=== PATIENT | female | born 1950 | race Caucasian/White ===

== ENCOUNTER 2019-04-03 13:10 | Emergency (ER) | payer MEDICARE ==
[2019-04-03] MEDS ORDERED: Ibuprofen 600 MG Tab PO ONE (13:27)
[2019-04-03 13:32] VITALS: PULSE 70
[2019-04-03] MEDS ORDERED: Ibuprofen 600 MG Tab ONE (13:36)
[2019-04-03 13:52] VITALS: BP 168/95
--- NOTE | 2019-04-03 17:16 | CR ---
CLINICAL DATA: Fall. RIGHT FOREARM, 03 APRIL 2019: No priors. There is mild diffuse osteopenia. No acute fracture or dislocation. No focal lytic or blastic bone lesions. Job: [id number] MTD[facility]
--- NOTE | 2019-04-03 17:21 | CR ---
CLINICAL DATA: Fall. RIGHT SHOULDER, 03 APRIL 2019: There is diffuse osteopenia. There are mild osteoarthritic changes of the AC and glenohumeral joints. There is mild spurring of the greater tuberosity of the proximal humerus. No acute fracture or dislocation. No lytic or blastic bone lesions. Job: [id number] [facility]
--- NOTE | 2019-04-03 17:54 | EDM.PDOC ---
ED HPI GENERAL MEDICAL PROBLEM - General Chief Complaint: General Stated Complaint: FALL, ARM INJURY Source of Information: Reports: Patient - History of Present Illness INITIAL COMMENTS - FREE TEXT/NARRATIVE: Patient is a 68 year old white female who slipped on the ice 1 hour prior to arrival and arrives c/o pain in right shoulder and right forearm and right lateral chest wall/ribs. No difficulty breathing. Patient denies head trauma , neck pain or LOC. Concerned about possible fracture. Duration: Hour(s): (1) Location: Reports: Upper Extremity, Right Quality: Reports: Sharp (Pain worse with deep breath in right ribs and pain worse with movement in right forearm and shoulder. 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: Musculoskeletal History: Reports: Other (See Below) Other Musculoskeletal History: Rt leg pain , Left Wrist pain, thumb ring finger and long finger RT hand Pain Psychiatric History: Reports: Depression - Past Surgical History GI Surgical History: Reports: Bariatric Procedure, Colonoscopy, Hernia Repair/ Other ED EXAM, GENERAL - Physical Exam Exam Limited By: No Limitations General Appearance: Alert, No Apparent Distress Head: Atraumatic Neck: Normal Inspection, Non-Tender, Full Range of Motion Respiratory/Chest: No Respiratory Distress, Lungs Clear, Normal Breath Sounds, Other (Right lateral chest wall mildy tender over right lateral chest wall over ribs 5 and 6) Cardiovascular: Regular Rate, Rhythm, No Gallop, No Murmur GI/Abdominal: Soft, Non-Tender, No Distention Back Exam: Normal Inspection, Other (Non tnender T spine and C spine) Course - Vital Signs Last Recorded V/S: Last Vital Signs Temp 98.2 F 04/03/19 13:49 Pulse 70 04/03/19 13:49 Resp 16 04/03/19 13:49 BP 168/95 H 04/03/19 13:49 Pulse Ox 99 04/03/19 13:49 - Orders/Labs/Meds Meds: Medications Discontinued Medications Generic Name Dose Route Start Last Admin Trade Name Freq PRN Reason Stop Dose Admin Ibuprofen 600 mg 04/03/19 13:27 04/03/19 13:29 Motrin PO 04/03/19 13:28 600 mg ONETIME ONE Administration Ibuprofen Confirm 04/03/19 13:36 Motrin Administered 04/03/19 13:37 Dose 600 mg .ROUTE .STK-MED ONE Departure - Departure Condition: Good Clinical Impression: Contusion of right chest wall Qualifiers: Encounter type: initial encounter Qualified Code(s): S20.211A - Contusion of right front wall of thorax, initial encounter - Discharge Information *PRESCRIPTION DRUG MONITORING PROGRAM REVIEWED*: Not Applicable Instructions: Contusion, [id number], Rib Contusion Referrals: PCP,None [Primary Care Provider] - Forms: ED Department Discharge, ED Summary Discharge Care Plan Goals: May use ice on extremity, may take motrin or tylenol for pain. Return to hospital or clinic if symptoms worsen. Follow up with usual MD in 7-10 days if pain doesn't clear. Will call patient if radiologist reads a fracture on x ray X rays negative by my reading. Sepsis Event Note - Evaluation Sepsis Screening Result: No Definite Risk - Focused Exam Vital Signs: Vital Signs Temp Pulse Resp BP Pulse Ox 04/03/19 13:49 98.2 F 70 16 168/95 H 99 04/03/19 13:31 98.9 F 70 16 168/92 H 100 Date Exam was Performed: 04/03/19 Time Exam was Performed: 18:01
--- NOTE | 2019-04-03 18:20 | EDM.PDOC ---
ED HPI GENERAL MEDICAL PROBLEM - General Chief Complaint: General Stated Complaint: FALL, ARM INJURY, chest wall, forearm and shoulder pain Source of Information: Reports: Patient History Limitations: Reports: No Limitations - History of Present Illness INITIAL COMMENTS - FREE TEXT/NARRATIVE: Patient is a 68 year old white female who slipped on the ice 1 hour prior to arrival and arrives c/o pain in right shoulder and right forearm and right lateral chest wall/ribs. No difficulty breathing. Patient denies head trauma , neck pain or LOC. Concerned about possible fracture. Duration: Hour(s): (1) Location: Reports: Upper Extremity, Right Quality: Reports: Sharp (Pain worse with deep breath in right ribs and pain worse with movement in right forearm and shoulder. 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 No difficulty breathing. Patient denies head trauma , neck pain or LOC. Concerned about possible fracture. Exam Limited By: No Limitations General Appearance: Alert, No Apparent Distress Head: Atraumatic Neck: Normal Inspection, Non-Tender, Full Range of Motion Respiratory/Chest: No Respiratory Distress, Lungs Clear, Normal Breath Sounds, Other (Right lateral chest wall mildy tender over right lateral chest wall over ribs 5 and 6) Cardiovascular: Regular Rate, Rhythm, No Gallop, No Murmur GI/Abdominal: Soft, Non-Tender, No Distention Back Exam: Normal Inspection, Other (Non tnender T spine and C spine) Extremities: Normal Inspection, Normal Range of Motion, Other (Tener over distal forearm and proximal humerus at shoulder with normal range of motion of wrist elbow and shoulder without deformity) Neurological: Alert, Oriented, Normal Cognition, Normal Gait Course - Vital Signs Last Recorded V/S: Last Vital Signs Temp 98.2 F 04/03/19 13:49 Pulse 70 04/03/19 13:49 Resp 16 04/03/19 13:49 BP 168/95 H 04/03/19 13:49 Pulse Ox 99 04/03/19 13:49 - Orders/Labs/Meds Meds: Medications Discontinued Medications Generic Name Dose Route Start Last Admin Trade Name Pamela PRN Reason Stop Dose Admin Ibuprofen 600 mg 04/03/19 13:27 04/03/19 13:29 Motrin PO 04/03/19 13:28 600 mg ONETIME ONE Administration Ibuprofen Confirm 04/03/19 13:36 Motrin Administered 04/03/19 13:37 Dose 600 mg .ROUTE .STK-MED ONE - Radiology Interpretation Free Text/Narrative:: X rays of right forearm and shoulder negative for fx or subluxation Departure - Departure Disposition: Home, Self-Care 01 Condition: Good Clinical Impression: Contusion of forearm, right Qualifiers: Encounter type: initial encounter Qualified Code(s): S50.11XA - Contusion of right forearm, initial encounter Contusion of right chest wall Qualifiers: Encounter type: initial encounter Qualified Code(s): S20.211A - Contusion of right front wall of thorax, initial encounter - Discharge Information *PRESCRIPTION DRUG MONITORING PROGRAM REVIEWED*: Not Applicable *COPY OF PRESCRIPTION DRUG MONITORING REPORT IN PATIENT BRENDA: Not Applicable Instructions: Contusion, [id number], Rib Contusion Referrals: PCP,None [Primary Care Provider] - Forms: ED Department Discharge, ED Summary Discharge Care Plan Goals: May use ice on extremity, may take motrin or tylenol for pain. Return to hospital or clinic if symptoms worsen. Follow up with usual MD in 7-10 days if pain doesn't clear. Will call patient if radiologist reads a fracture on x ray X rays negative by my reading. Sepsis Event Note - Evaluation Sepsis Screening Result: No Definite Risk - Focused Exam Date Exam was Performed: 04/04/19 Time Exam was Performed: 12:38 - Problem List & Annotations (1) Contusion of right chest wall SNOMED Code(s): 46939402606112497 Code(s): S20.211A - CONTUSION OF RIGHT FRONT WALL OF THORAX, INITIAL ENCOUNTER Status: Acute Qualifiers: Encounter type: initial encounter Qualified Code(s): S20.211A - Contusion of right front wall of thorax, initial encounter - Assessment/Plan Assessment:: Contusion to right forearm,l chest wall and shoulder Plan: Return for worsening pain or SOB or otjher worsening Disharge to home\Motrin prn for pain 600 mg po tid prn
== END 2019-04-03 14:13 | disposition home or self-care (01) ==
LOC: LB.ED 13:10
DX: S20.211A Contusion of right front wall of thorax, initial encounter (principal); S50.11XA Contusion of right forearm, initial encounter; W00.0XXA Fall on same level due to ice and snow, initial encounter
CPT/HCPCS: 73030-RT; 73090-RT; 99283; 99283-25; A9270-GY

== ENCOUNTER 2020-01-01 10:56 | Day surgery (SDC) | payer MEDICARE ==
[~2020-01-01 10:56] MED LIST: Metoclopramide 10 MG/2 ML SDV IV PRN; Sodium Chloride 0.9% 1,000 ML IV SCH
[2020-01-01] MEDS ORDERED: Propofol 1,000 MG/100 ML SDV ONE (15:00)
[2020-01-01 16:21] VITALS: BP 140/75; PULSE 69
--- NOTE | 2020-01-01 19:10 | OR ---
DATE OF OPERATION: 01/01/2020 SURGEON: Jun Finch MD PREOPERATIVE DIAGNOSIS: Surveillance colonoscopy. POSTOPERATIVE DIAGNOSIS: Surveillance colonoscopy. PROCEDURE: Colonoscopy with polypectomy x2. ANESTHESIA: MAC. ESTIMATED BLOOD LOSS: Minimal. COMPLICATIONS: None. INDICATION FOR THE PROCEDURE: The patient is a 69-year-old female here today for a surveillance colonoscopy. Last colonoscopy was 10 years ago. She did have polyps on her previous exam. Otherwise, denies any change in bowel habits since that time. DESCRIPTION OF PROCEDURE: Informed consent was obtained from the patient. The patient was taken to the operating room and placed on table in left lateral decubitus position. Monitored anesthesia care was administered. Digital rectal exam performed and was normal. Colonoscope then advanced through the anus directed toward the cecum. Cecum was reached and identified by appendiceal orifice and ileocecal valve. The patient did have a quite torturous colon and was significantly hampered by looping. Using tensioner and abdominal pressure, we were able to reach the cecum. We slowly withdrew the scope. She did have a small semipedunculated polyp in the sigmoid colon. This was removed by hot snare polypectomy. Also had another small semi-pedunculated polyp in the rectum. This was also removed by hot snare polypectomy. Remainder of the colon was unremarkable. FINDINGS: Colon polyps x2, appearing benign. RECOMMENDATIONS: We will follow up on biopsy results. Otherwise, we would recommend repeat surveillance colonoscopy in 5 years. JOSE J/MAGNO /[id number]
== END 2020-01-01 16:28 | disposition home or self-care (01) ==
LOC: LB.SDS 10:56
PROVIDERS: ATTEND Surgery
DX: Z12.11 Encounter for screening for malignant neoplasm of colon (principal); D12.5 Benign neoplasm of sigmoid colon; D12.8 Benign neoplasm of rectum; K56.2 Volvulus; Q43.8 Other specified congenital malformations of intestine; Z98.890 Other specified postprocedural states; Z86.010 Personal history of colon polyps
CPT/HCPCS: 45385; 88305; J2704; J7030

== ENCOUNTER 2024-12-07 12:34 | Emergency (ER) | payer MEDICARE ==
[2024-12-07] MEDS ORDERED: Hydrocortisone/Neomycin/Polymyxin B Otic Soln 10 ML Bottle ONE (13:30)
[2024-12-07 13:49] VITALS: BP 177/96; PULSE 60
== END 2024-12-07 13:52 | disposition home or self-care (01) ==
LOC: LB.ED 12:34
DX: H65.112 Acute and subacute allergic otitis media (mucoid) (sanguinous) (serous), left ear (principal); I10 Essential (primary) hypertension; Z79.82 Long term (current) use of aspirin; Z79.899 Other long term (current) drug therapy
CPT/HCPCS: 99283; A9270